=== PATIENT | female | born 1960 | race Caucasian/White ===

== ENCOUNTER 2019-01-30 05:31 | Inpatient (IN) | payer OTHER ==
[2019-01-30] MEDS ORDERED: CEFAZOLIN 2 GM/50 ML (PMX) 50 ML IVPB (06:00)
[2019-01-30] MEDS ORDERED: BUPIVACAINE 0.5% (SDV) 30 ML, morphine SULFATE (PF) 8 MG, EPINEPHrine 0.3 MG, KETOROLAC... IRR (06:00)
[2019-01-30] MEDS ORDERED: SOD CHLORIDE 0.9% 100 ML, TRANEXAMIC ACID 3,000 MG IRR (06:00)
[2019-01-30] MEDS ORDERED: TRANEXAMIC ACID 1GM/100ML(PMX) 100 ML IVPB (06:00)
[2019-01-30] MEDS ORDERED: TRANEXAMIC ACID 1GM/100ML(PMX) 100 ML (06:02)
[2019-01-30] MEDS ORDERED: POLYMYXIN/BACITRACIN 1L IRRIG (06:02)
[2019-01-30] MEDS: DEXAMETHASONE 1 MG TAB PO (06:03)
[2019-01-30] MEDS: GABAPENTIN 300 MG CAP PO ×2 (06:03→22:24)
[2019-01-30] MEDS ORDERED: THROMBIN 5000 UNIT VIAL (06:43)
[2019-01-30] MEDS: POLYMYXIN/BACITRACIN 1L IRRIG (06:43)
[2019-01-30] MEDS ORDERED: CA CHLORIDE (GM) 10% 10 ML INJ (06:43)
[2019-01-30] MEDS ORDERED: MIDAZOLAM 1 MG/ML 2 ML INJ (06:46)
[2019-01-30] MEDS ORDERED: ONDANSETRON 4 MG INJ (06:46)
[2019-01-30] MEDS ORDERED: morphine SULFATE/PF (10 MG/10 ML) INJ (06:46)
[2019-01-30] MEDS ORDERED: PROPOFOL 20 ML (06:46)
[2019-01-30] MEDS ORDERED: METOCLOPRAMIDE 10 MG INJ (06:46)
[2019-01-30] MEDS ORDERED: CEFAZOLIN 1 GM INJ (06:56)
[2019-01-30] MEDS ORDERED: FENTAnyl 50 MCG/ML VIAL (06:56)
[2019-01-30] MEDS ORDERED: FENTAnyl 50 MCG/ML VIAL IV ×3 (07:00)
[2019-01-30] MEDS ORDERED: DIPHENHYDRAMINE 50 MG INJ IV ×2 (07:00→09:00)
[2019-01-30] MEDS ORDERED: ONDANSETRON 4 MG INJ IV ×2 (07:00→09:00)
[2019-01-30] MEDS ORDERED: HYDROmorphONE 1 MG/5 ML IV SYRINGE IV ×3 (07:00)
[2019-01-30] MEDS ORDERED: ROPIVACAINE 0.5 % 30 ML VIAL (07:56)
[2019-01-30] MEDS ORDERED: KETOROLAC 30 MG INJ (08:40)
[2019-01-30] MEDS ORDERED: MAGNESIUM HYDROXIDE 30ML CUP PO (09:00)
[2019-01-30] MEDS ORDERED: ZOLPIDEM 5 MG TAB PO (09:00)
[2019-01-30] MEDS ORDERED: oxyCODONE 5 MG TAB PO (09:00)
[2019-01-30] MEDS ORDERED: NACL 0.9% 3 ML SYG IV (09:00)
[2019-01-30] MEDS: PROGESTERONE MICRONIZED 200 MG XX ×2 (09:00→17:00)
[2019-01-30] MEDS ORDERED: HYDROmorphONE 1 MG/ML SYG IV (09:00)
[2019-01-30] MEDS: [UNRECOGNIZED DRUG - OTHER] XX ×2 (09:00→17:00)
[2019-01-30] MEDS: MEPERIDINE 25 MG INJ IV (09:01)
[2019-01-30 10:04] LABS: ADD MAN DIFF? NO
[2019-01-30 10:09] LABS: BASOPHILS % 0.4 % (0.0-2.0); EOSINOPHILS % 0.1 % (0.0-7.0); HEMATOCRIT 38.6 % (37.0-47.0); HEMOGLOBIN 13.1 g/dl (12.0-16.0); LYMPHOCYTES # 0.7 10^3/ul (0.8-2.9); LYMPHOCYTES % 9.6 % (15.0-51.0); MEAN CORPUSCULAR HEMOGLOBIN 30.7 pg (29.0-33.0); MEAN CORPUSCULAR HGB CONC 33.9 g/dl (32.0-37.0); MEAN CORPUSCULAR VOLUME 90.4 fl (82.0-101.0); MEAN PLATELET VOLUME 10.9 fl (7.4-10.4); MONOCYTE # 0.1 10^3/ul (0.3-0.9); MONOCYTES % 1.6 % (0.0-11.0); NEUTROPHIL # 6.8 10^3/ul (1.6-7.5); NEUTROPHILS % 87.8 % (39.0-77.0); PLATELET COUNT 186 10^3/UL (140-415); RED BLOOD COUNT 4.27 10^6/ul (4.20-5.40); RED CELL DISTRIBUTION WIDTH 12.3 % (11.5-14.5)
[2019-01-30 10:09] LABS: WHITE BLOOD COUNT 7.7 10^3/ul (4.8-10.8)
[2019-01-30] MEDS: CEFAZOLIN 1 GM/50 ML (PMX) 50 ML IVPB ×2 (10:20→16:56)
[2019-01-30] MEDS: SENNA/DOCUSATE NA (8.6MG/50MG) TAB PO ×2 (12:20→22:24)
[2019-01-30] MEDS: DEXAMETHASONE 2 MG TAB PO ×2 (12:20→17:43)
[2019-01-30] MEDS: ACETAMINOPHEN 1000MG/100ML IV 100 ML IVPB ×2 (12:21→16:56)
[2019-01-30] MEDS: LORATADINE 10 MG TAB PO (12:21)
[2019-01-30] MEDS: LACTATED RINGER'S 1,000 ML IV ×2 (12:22→17:29)
[2019-01-30] MEDS: oxyCODONE 5 MG TAB PO (15:16)
[2019-01-30] MEDS ORDERED: NON-FORMULARY/PATIENT OWN MED (Progesterone,Micronized* (Progesterone*) 200 MG) PO (21:00)
[2019-01-31] MEDS: ACETAMINOPHEN 1000MG/100ML IV 100 ML IVPB (00:13)
[2019-01-31] MEDS: DEXAMETHASONE 2 MG TAB PO ×2 (00:13→06:06)
[2019-01-31] MEDS: [UNRECOGNIZED DRUG - OTHER] XX ×2 (00:38→09:00)
[2019-01-31] MEDS: PROGESTERONE MICRONIZED 200 MG XX ×2 (00:38→09:00)
[2019-01-31] MEDS: CEFAZOLIN 1 GM/50 ML (PMX) 50 ML IVPB (01:01)
[2019-01-31] MEDS: LACTATED RINGER'S 1,000 ML IV (04:37)
[2019-01-31 04:59] LABS: ADD MAN DIFF? NO
[2019-01-31 05:05] LABS: BASOPHILS % 0.1 % (0.0-2.0); HEMATOCRIT 27.6 % (37.0-47.0); HEMOGLOBIN 9.4 g/dl (12.0-16.0); LYMPHOCYTES # 1.4 10^3/ul (0.8-2.9); LYMPHOCYTES % 9.4 % (15.0-51.0); MEAN CORPUSCULAR HGB CONC 34.1 g/dl (32.0-37.0); MEAN CORPUSCULAR VOLUME 91.1 fl (82.0-101.0); MEAN PLATELET VOLUME 11.5 fl (7.4-10.4); MONOCYTE # 1.1 10^3/ul (0.3-0.9); MONOCYTES % 7.6 % (0.0-11.0); NEUTROPHIL # 11.8 10^3/ul (1.6-7.5); NEUTROPHILS % 82.4 % (39.0-77.0); PLATELET COUNT 156 10^3/UL (140-415); RED BLOOD COUNT 3.03 10^6/ul (4.20-5.40); RED CELL DISTRIBUTION WIDTH 12.3 % (11.5-14.5)
[2019-01-31 05:05] LABS: WHITE BLOOD COUNT 14.3 10^3/ul (4.8-10.8)
[2019-01-31] MEDS: LORATADINE 10 MG TAB PO (09:17)
[2019-01-31] MEDS: SENNA/DOCUSATE NA (8.6MG/50MG) TAB PO (09:17)
[2019-01-31] MEDS: oxyCODONE 5 MG TAB PO (09:18)
[2019-01-31] MEDS: ASPIRIN (EC) 325 MG TAB PO (09:18)
[2019-02-01] MEDS ORDERED: MAGNESIUM HYDROXIDE 30ML CUP PO (21:00)
== END 2019-01-31 13:15 | disposition home or self-care (01) | DRG 470 ==
LOC: REC 05:31 → MS1 10:47
PROVIDERS: Orthopaedic Surgery
PROC: 0SRB04A Replacement of Left Hip Joint with Ceramic on Polyethylene Synthetic Substitute, Uncemented, Open Approach (ICD-10-PCS; principal; 2019-01-30 06:59)
DX: M16.12 Unilateral primary osteoarthritis, left hip (principal); E78.5 Hyperlipidemia, unspecified
CPT/HCPCS: 72170; 73530; 85025; 86999; 87086; 88304; 88311; 97161